=== PATIENT | female | born 1985 | race Caucasian/White ===

== ENCOUNTER → 2022-06-03 | Outpatient (CLI) | payer OTHER ==
--- NOTE | 2022-06-03 17:12 | Diagnostic Imaging Report ---
PROCEDURE: Pelvic complete, transabdominal and transvaginal sonogram. Limited pelvic Doppler. TECHNIQUE: Multiple real-time grayscale images were obtained of the pelvis in various projections, transabdominally and transvaginally. Limited pelvic duplex images were obtained. HISTORY: Abnormal uterine bleeding. COMPARISON: None available. FINDINGS: Uterus: The uterus is anteverted and measures 6.6 x 3.3 x 5.7 cm. The myometrium is homogeneous without fibroids. Endometrium: The endometrium is normal in thickness and measures 1.0 cm. There is no fluid within the endometrial cavity. Adnexa: There is a 3.8 cm heterogeneous cystic structure within the left adnexa with lacelike appearance. The right ovary is unremarkable. The right ovary measures 2.7 x 1.8 x 2.3 cm and the left ovary measures 4.7 x 4.2 x 3.5 cm. Duplex images reveal normal vascular flow to both ovaries. Other: There is no free fluid within the pelvis. IMPRESSION: 1. A 3.8 cm left adnexal cyst which has an appearance suggesting a hemorrhagic cyst. Consider ultrasound follow-up in 6-12 weeks. 2. Otherwise unremarkable pelvic ultrasound. Dictated by: Dictated on workstation # [id number]
== END ==
LOC: RAD 13:54
PROVIDERS: ATTEND Obstetrics & Gynecology
DX: N83.8 Other noninflammatory disorders of ovary, fallopian tube and broad ligament (principal)
CPT/HCPCS: 76830; 76856

== ENCOUNTER 2023-05-24 14:09 | Emergency (ER) | payer OTHER ==
[~2023-05-24] VITALS: Ht 152 cm; Wt 90.0 kg
--- NOTE | 2023-05-24 14:47 | ED General ---
General Chief Complaint: Bite-Animal/Human/Insect Stated Complaint: RABIES VACCINATION | UNKNOWN EXPOSURE Nursing Triage Note: PT PRESENTS TO ED AFTER BEING SENT BY [facility] FOR BAT EXPOSURE. PT WOKE UP LAST WEDNESDAY 05/16 TO A BAT FLYING AROUND HER ROOM. 3 DAYS AGO, HER CAT CAUGHT ANOTHER BAT WITHIN THE HOME. PT DENIES BEING BITTEN BY THE BATS BUT WAS SENT FOR RABIES VACCINE. Source of Information: Patient Exam Limitations: No Limitations (MARGOTH KUHN) History of Present Illness Date Seen by Provider: May 24, 2023 Time Seen by Provider: 14:45 Initial Comments Patient Is a 37-year-old female who with no known medical problems who presents ED for potential bat exposure. She states 8 days ago she woke up with a bat flying in her room. She denies of any specific bat or salivary involvement. She states this past Wednesday her cat caught a bat in her room. She states she called [facility] ED epidemiology and was directed to come to ED for rabies vaccine. Patient has no current complaint. She denies fever, chills, abdominal pain, chest pain, cough, muscle spasming, abdominal pain, vomiting, diarrhea (MARGOTH KUHN) Allergies and Home Medications Allergies Coded Allergies: No Known Drug Allergies (Unverified , 05/24/23) Patient Home Medication List Home Medication List Reviewed: Yes (MARGOTH KUHN) Review of Systems Review of Systems Constitutional: No chills, No diaphoresis, No fever, No malaise, No weakness EENTM: No ear pain, No blurred vision, No double vision Respiratory: No cough, No dyspnea on exertion Cardiovascular: No chest pain, No edema Gastrointestinal: No abdominal pain, No diarrhea, No nausea, No vomiting Genitourinary: No decreased output, No discharge Musculoskeletal: No back pain, No joint pain Skin: No change in color, No change in hair/nails (MARGOTH KUHN) All Other Systems Reviewed Negative Unless Noted: Yes (MARGOTH KUHN) Past Ezzyune-Flotjv-Dbbmkv Hx Patient Social History Tobacco Use?: No Substance use?: No Alcohol Use?: No Pt feels they are or have been: No (MARGOTH KUHN) Physical Exam Vital Signs Vital Signs - First Documented 05/24/23 14:15 Temp 36.9 Pulse 88 Resp 18 B/P (MAP) 171/95 (120) Pulse Ox 98 O2 Delivery Room Air (GUSTAVO ARORA MD) Vital Signs Capillary Refill : Less Than 3 Seconds (MARGOTH KUHN) Height, Weight, BMI Height: '" Weight: lbs. oz. kg; 38.00 BMI Method: General Appearance: No Apparent Distress, WD/WN Eyes: Bilateral Eye Normal Inspection, Bilateral Eye PERRL, Bilateral Eye EOMI HEENT: PERRL/EOMI, TMs Normal, Normal ENT Inspection, Pharynx Normal Neck: Full Range of Motion, Normal Inspection, Non Tender, Supple Respiratory: Chest Non Tender, Lungs Clear, Normal Breath Sounds, No Accessory Muscle Use, No Respiratory Distress Cardiovascular: Regular Rate, Rhythm, No Edema, No Gallop, No JVD Gastrointestinal: Normal Bowel Sounds, No Organomegaly, No Pulsatile Mass Back: Normal Inspection, No CVA Tenderness, No Vertebral Tenderness Extremity: Normal Capillary Refill, Normal Inspection, Normal Range of Motion, Non Tender Neurologic/Psychiatric: Alert, Oriented x3, No Motor/Sensory Deficits, Normal Mood/Affect, dyed raw stock blower feeder II-XII Norm as Tested Skin: Normal Color, Warm/Dry (MARGOTH KUHN) Progress/Results/Core Measures Suspected Sepsis SIRS Temperature: Pulse: 88 Respiratory Rate: 18 Blood Pressure 171 /95 Mean: 120 (MARGOTH KUHN) Results/Orders Medications Given in ED Current Medications Medications Dose Ordered Sig/Hair Route Start Time Stop Time Status Last Admin Dose Admin Rabies Immune Globulin 1,800 units ONCE ONCE IM 05/24/23 15:00 05/24/23 15:01 DC 05/24/23 15:20 1,800 UNITS Rabies Vaccine Human Diploid Cell 1 ml ONCE ONCE IM 05/24/23 15:00 05/24/23 15:01 DC 05/24/23 15:19 1 ML (GUSTAVO ARORA MD) Vital Signs/I&O 05/24/23 05/24/23 14:15 15:48 Temp 36.9 Pulse 88 79 Resp 18 18 B/P (MAP) 171/95 (120) 169/83 Pulse Ox 98 99 O2 Delivery Room Air Room Air (GUSTAVO ARORA MD) Vital Signs/I&O Capillary Refill : Less Than 3 Seconds (MARGOTH KUHN) Blood Pressure Mean: 120 Departure Communication (PCP) On exam no evidence of any bites. No obvious mucosal or blood involvement. Contacted [facility] epidemiology. Ina at [facility] she recommended the rabies series and immunoglobulin. Unknown if patient was bitten. they recommended rabies vaccine series for 4 days and immunoglobulin at this time. Outpatient order was given for the rest of the series for day 3, day 7 and day 14. She is up-to-date on her tetanus. She has no current complaints or symptoms at this time. If any rash, vomiting, shakiness after the vaccine to return back to ED. Discussed potential side effects. Return strict return precaution were discussed. (MARGOTH KUHN) Impression Primary Impression: Exposure to bat without known bite Disposition: 01 HOME, SELF-CARE Condition: Stable Departure-Patient Inst. Decision time for Depature: 15:11 (MARGOTH KUHN) Referrals: [facility],LOCAL PHYSICIAN (PCP) Primary Care Physician Patient Instructions: Rabies Vaccine CDC Vaccine Information Statement (VIS) Add. Discharge Instructions: If any developing symptoms, fever, chills, vomiting, muscle spasming, chest pain to return back to ED for further evaluation. Provided outpatient orders for the rest of the vaccine. This can be done outpatient. All discharge instructions reviewed with patient and/or family. Voiced understanding. ATTENDING PHYSICIAN NOTE: I was physically present as attending physician in the emergency department during the care of this patient, but I was not directly involved in the decision making or delivery of care for this patient. (GUSTAVO ARORA MD) MARGOTH KUHN May 24, 2023 14:47 GUSTAVO ARORA MD May 24, 2023 19:07
[2023-05-24] MEDS ORDERED: RABIES IMMUNE GLOBULIN (KEDRAB) 1,500 UNITS/10 ML IM ONE (15:00)
[2023-05-24] MEDS ORDERED: RABIES VACCINE HUMAN DIPL CELL 1 ML/2.5 UNITS SYR IM ONE (15:00)
[2023-05-24 15:48] VITALS: BP 169/83
== END 2023-05-24 15:48 | disposition home or self-care (01) ==
LOC: EDUNIT# 14:09 → ER 14:11
DX: Z20.3 Contact with and (suspected) exposure to rabies (principal); Z29.14 Encounter for prophylactic rabies immune globulin
CPT/HCPCS: 90675; 90676; 99284

== ENCOUNTER 2023-05-27 12:52 | Outpatient (RCR) | payer OTHER ==
[~2023-05-27] VITALS: Ht 152.4 cm; Wt 94.0 kg
[2023-05-27] MEDS ORDERED: RABIES VACCINE HUMAN DIPL CELL 1 ML/2.5 UNITS SYR INJ ONE (13:15)
[2023-05-27 13:20] VITALS: BP 145/91
== END 2023-05-28 ==
LOC: SDC 12:52
PROVIDERS: ATTEND Physician Assistant
DX: Z23 Encounter for immunization (principal)
CPT/HCPCS: 90471; 90675

== ENCOUNTER 2023-06-07 10:58 | Outpatient (RCR) | payer OTHER ==
[2023-05-31 09:50] VITALS: BP 139/90
[~2023-06-07] VITALS: Wt 94.0 kg
[~2023-06-07 10:58] MED LIST: RABIES VACCINE HUMAN DIPL CELL 1 ML/2.5 UNITS SYR INJ ONE; RABIES VACCINE HUMAN DIPL CELL 1 ML/2.5 UNITS SYR ONE
[2023-06-07 11:18] VITALS: BP 135/85
== END 2023-06-07 11:18 | disposition still patient (30) ==
LOC: SDC 10:58
PROVIDERS: ATTEND Physician Assistant
DX: Z23 Encounter for immunization (principal)
CPT/HCPCS: 90471; 90675